=== PATIENT | female | born 1965 | race African-American/Black ===

== ENCOUNTER → 2017-07-20 | Outpatient (CLI) | payer OTHER ==
[2013-06-11 03:46] VITALS: BP 153/96
--- NOTE | 2017-07-20 10:07 | RAD ---
HISTORY: Back pain, disability claim Study: Three-view lumbar spine Comparison: No priors Technique: AP, lateral and spot lateral of the lumbosacral junction are provided. Findings: There is a grade 1 upper endplate compression deformity at the L1 level, age uncertain. There is norm al anatomic alignment without subluxation.. No other fractures are seen. Mild multilevel spondylosis is present. Disc spaces are well maintained. Pedicles, transverse processes and posterior elements ar e intact. IMPRESSION: Grade 1 upper endplate compression deformity at the L1 level, age uncertain. Reported By:
--- NOTE | 2017-07-20 10:09 | RAD ---
Examination: X-rays of the left knee. Clinical history: Left knee pain, disability claim. Technique: AP and lateral views of the left knee were obtained. Comparison: None available. Findings: No acute fracture, dislocation, or destructive bony lesion is noted. Moderate tricompartmental osteoarthritic changes are noted. Soft tissue calcifications are seen at the medial aspect of the medial femoral condyle, probably due to sequela from an old medial collateral ligament injury. A 7 mm soft tissue calcification is seen projecting over the joint space at the intercondylar notch, worrisome for a loose intra-articular body. No joint effusion is noted. Impression: 1. No acute fracture or dislocation. 2. Moderate tricompartmental osteoarthritis. 3. Soft tissue calcifications are seen at the medial aspect of the medial femoral condyle, probably d ue to sequela from an old medial collateral ligament injury. 4. A 7 mm soft tissue calcification is seen projecting over the joint space at the intercondylar notc h, worrisome for a loose intra-articular body. Reported By:
== END | disposition home or self-care (01) | DRG 951 ==
LOC: RAD 09:37
PROVIDERS: ATTEND Internal Medicine
DX: Z02.71 Encounter for disability determination (principal); M25.562 Pain in left knee; M54.5 Low back pain; M17.12 Unilateral primary osteoarthritis, left knee; M79.89 Other specified soft tissue disorders; M43.8X6 Other specified deforming dorsopathies, lumbar region
CPT/HCPCS: 72100; 73560

== ENCOUNTER 2021-04-14 17:52 | Inpatient (IN) ==
[2021-04-14] MEDS ORDERED: TYLENOL 500 MG TAB EXTRA STRENGTH PO STA (18:22)
[2021-04-14] MEDS ORDERED: NS 1000 ML 1,000 ML IV STA (18:22)
[2021-04-14] MEDS ORDERED: TORADOL 30 MG VIAL IVP STA (18:22)
--- NOTE | 2021-04-14 18:22 | DR.NAUSEAF ---
HPI Time Seen Time Seen by Provider: 04/14/21 18:03 HPI Comment HPI Comment: PATIENT WITH A HISTORY RECEIVING 2ND COVID VACCINE April, THEN DEVELOPED FEVER, CHILLS 3 DAYS LATER, FEVER, NAUSEA EMESIS TODAY. PATIENT ALSO COMPLAINS OF LEFT SIDED CHEST PAIN, NECK PAIN, AND LEFT SIDED ABDOMINAL PAIN. HAS PAIN UPON INSPIRATION AND SLIGHT COUGH. Complaints Chief Complaint Doctors Comments: FEVER, NAUSEA, EMESIS, FLANK PAIN Reviewed Nurses Notes Reviewed: Yes Associated Signs and Symptoms Abdominal Pain Quality: Sharp and Stabbing Abdominal Pain Location: LUQ Symptoms: Abdominal Pain and Fever PMH PMH Past Medical History: Depression and Hypertension Surgical History: Unknown ROS Review of Systems Constitutional: Chills, Fever and Malaise Cardiovascular: See HPI and Chest Pain Gastrointestinal/Abdominal: See HPI, Abdominal Pain, Nausea and Vomiting Neurological: Weakness Musculoskeletal: Neck Pain PE Vital Signs Vitals: Temperature 98.8 F Pulse Rate [Left] 89 Pulse Rate 112 Respiratory Rate 20 Blood Pressure [Right Arm] 115/74 Blood Pressure 127/69 O2 Sat by Pulse Oximetry 97 General General Appearance: Alert and In No Apparent Distress Head Head Exam: Normal Inspection Eyes Eye exam: Normal Appearance, PERRL and EOMI ENT ENT Exam: Normal Exam and Normal Oropharynx Neck Neck Exam: Normal Inspection and Tenderness (MODERATE TENDERNESS) Chest Chest Inspection: Normal Inspection, Symmetric Chest Wall Rise and Tenderness (MARKED TENDERNESS LEFT CHEST WALL 5TH TO 7TH RIBS) Respiratory Respiratory Exam: Normal Lung Sounds Bilat and Chest Wall Tenderness Cardiovascular Cardiovascular Exam: Regular Rate, Normal Rhythm and Tachycardia Abdominal Exam Abdominal Exam: Normal Inspection, Normal Bowel Sounds, Soft and Tenderness (MARKED TENDERNESS LEFT UPPER QUAD ANTERIOR TO LEFT CVA) Abdominal Tenderness: LUQ Extremities Extremities Exam: Normal Inspection and Full ROM Back Back Exam: Normal Inspection, Full ROM and (L) CVA Tenderness (MARKED LEFT CVA TENDERNESS) Neurologic Neurological Exam: Alert and Oriented X3 Psychiatric Psychiatric Exam: Normal Affect and Normal Mood Skin Skin Exam: Warm and Dry MDM Differential Diagnosis Differential Diagnosis: Considerations may Include:: Bowel Obstruction, Inflammatory BD, Urinary Tract Infection and Urolithiasis Differential Diagnosis Comment: LEFT PYELONEPHRITIS COURSE Treatment Treatment: IV NORMAL SALINE 1 LITER/HR AFTER 2 SETS OF BLOOD CULTURE, ROCEPHIN 2 GM IVPB, TORADOL 30MG IV, FLAGYL 2000MG ORALLY FOR TRICHOMONAS VAGINITIS Consultation Call Returned: 21:25 Consultation Comments: DISCUSSED FINDINGS WITH DR KENNY FOR ADMIT INPATIENT. ROR Labs Reviewed Result Diagrams: 04/14/21 18:34 04/14/21 18:34 Laboratory: WBC 18.4 X10^3/uL (3.6-10.0) H 04/14/21 18:34 RBC 3.83 X10^6/uL (3.5-5.4) 04/14/21 18:34 Hgb 12.2 g/dL (12.0-16.0) 04/14/21 18:34 Hct 37.4 % (36.0-47.0) 04/14/21 18:34 MCV 97.6 fL (80.0-100.0) 04/14/21 18:34 MCH 32.0 pg (27.0-34.0) 04/14/21 18:34 MCHC 32.8 g/dL (33.0-35.0) L 04/14/21 18:34 RDW 13.9 % (11.6-16.5) 04/14/21 18:34 Plt Count 205 X10^3/uL (150.0-450.0) 04/14/21 18:34 MPV 9.7 fL (7.4-11.0) 04/14/21 18:34 Neut % (Auto) 86.2 % (42.0-75.0) H 04/14/21 18:34 Lymph % (Auto) 4.1 % (21.0-51.0) L 04/14/21 18:34 [place] % (Auto) 9.4 % (0.0-13.0) 04/14/21 18:34 Eos % (Auto) 0.1 % (0.9-2.9) L 04/14/21 18:34 Baso % (Auto) 0.2 % (0.2-1.0) 04/14/21 18:34 Neut # (Auto) 15.8 x10^3/uL (2.2-4.8) H 04/14/21 18:34 Lymph # (Auto) 0.8 X10^3/uL (1.3-2.9) L 04/14/21 18:34 [place] # (Auto) 1.7 x10^3/uL (0.3-0.8) H 04/14/21 18:34 Eos # (Auto) 0.0 x10^3/uL (0.0-0.2) 04/14/21 18:34 Baso # (Auto) 0.0 X10^3/uL (0.0-0.1) 04/14/21 18:34 Absolute Nucleated RBC 0.0 /100WBC 04/14/21 18:34 D-Dimer 2.06 ug/ml (0.0-0.57) H* 04/14/21 18:34 Sodium 141 mmol/L (136-145) 04/14/21 18:34 Corrected Sodium 142 mmol/L (136-145) 04/14/21 18:34 Potassium 3.5 mmol/L (3.5-5.1) 04/14/21 18:34 Chloride 101 mmol/L (98-107) 04/14/21 18:34 Carbon Dioxide 32.3 mmol/L (21-32) H 04/14/21 18:34 BUN 12 mg/dL (7-18) 04/14/21 18:34 Creatinine 1.45 mg/dL (0.55-1.02) H 04/14/21 18:34 Est GFR (MDRD) Af Amer 48 (>60) L 04/14/21 18:34 Est GFR (MDRD) Non-Af 40 (>60) L 04/14/21 18:34 Glucose 135 mg/dL (65-99) H 04/14/21 18:34 Calcium 8.5 mg/dL (8.5-10.1) 04/14/21 18:34 Corrected Calcium 9.5 mg/dL (8.5-10.1) 04/14/21 18:34 Total Bilirubin 0.90 mg/dL (0.2-1.0) 04/14/21 18:34 AST 30 Units/L (15-37) 04/14/21 18:34 ALT 38 Units/L (12-78) 04/14/21 18:34 Alkaline Phosphatase 97 Units/L (46-116) 04/14/21 18:34 Troponin I < 0.02 ng/mL (0-1.5) 04/14/21 18:34 Total Protein 7.5 g/dL (6.4-8.2) 04/14/21 18:34 Albumin 2.7 g/dL (3.4-5.0) L 04/14/21 18:34 Globulin 4.8 g/dL (2.5-4.5) H 04/14/21 18:34 Albumin/Globulin Ratio 0.6 Ratio (1.1-2.1) L 04/14/21 18:34 Specimen Type Random urine 04/14/21 20:20 Urine Color Yellow (YELLOW) 04/14/21 20:20 Urine Appearance Cloudy (CLEAR) 04/14/21 20:20 Urine pH 7.0 (5.0 - 8.0) 04/14/21 20:20 Ur Specific [place] 1.030 (1.000-1.030) 04/14/21 20:20 Urine Protein 3+ (NEGATIVE) 04/14/21 20:20 Urine Glucose (UA) Negative (NEGATIVE) 04/14/21 20:20 Urine Ketones Negative (NEGATIVE) 04/14/21 20:20 Urine Occult Blood 4+ (NEGATIVE) 04/14/21 20:20 Urine Nitrite Negative (NEGATIVE) 04/14/21 20:20 Urine Bilirubin Negative (NEGATIVE) 04/14/21 20:20 Urine Urobilinogen Normal (NORMAL) 04/14/21 20:20 Ur Leukocyte Esterase 3+ (NEGATIVE) 04/14/21 20:20 Urine RBC 5-10 /HPF (0-3) A 04/14/21 20:20 Urine WBC Tntc /HPF (0-5) A 04/14/21 20:20 Ur Squamous Epith Cells Few /HPF (NEGATIVE) 04/14/21 20:20 Urine Bacteria 1+ /HPF (NEGATIVE) 04/14/21 20:20 Urine Mucus Few /HPF (NEGATIVE) 04/14/21 20:20 Urine Trichomonas Moderate /HPF (NEGATIVE) 04/14/21 20:20 Ur Culture Indicated? No/not indicated 04/14/21 20:20 XRAY X-ray Results: CTA CHEST WITH IV CONTRAST - NO EVIDENCE OF PULMONARY EMBOLISM. ABDOMINAL PELVIC CT CONSISTENT WITH HETEROGENEOUS ENHANCEMENT AND PERINEPHRIC STRANDING OF THE LEFT GREATER THAN RIGHT KIDNEYS MOST COMPATIBLE WITH PYELONEPHRITIS EKG Rate: 110 [place]: Normal Rhythm: NSR and ST Hypertrophy: LAE ST: Nonsp Opioid Opioid Risk Tool Total: 0 Total Score Risk Category: Low Risk Copyright: Cid LR predicting aberrant behaviors Diagnosis Discharge Problem: Acute bacterial pyelonephritis, Pleurisy Instructions Forms: Precautions for COVID19 Patient Portal Social Distancing
[2021-04-14] MEDS ORDERED: NS 1000 ML 1,000 ML ONE ×2 (18:32→22:58)
[2021-04-14] MEDS ORDERED: TYLENOL 500 MG TAB EXTRA STRENGTH PO ONE (18:32)
[2021-04-14] MEDS ORDERED: TORADOL 30 MG VIAL ONE (18:32)
[2021-04-14 18:45] LABS: BASOPHILS % (AUTO) 0.2 % (0.2-1.0); EOSINOPHILS % (AUTO) 0.1 % (0.9-2.9); HEMATOCRIT 37.4 % (36.0-47.0); HEMOGLOBIN 12.2 g/dL (12.0-16.0); LYMPHOCYTES # (AUTO) 0.8 X10^3/uL (1.3-2.9); LYMPHOCYTES % (AUTO) 4.1 % (21.0-51.0); MEAN CORPUSCULAR HGB CONC 32.8 g/dL (33.0-35.0); MEAN CORPUSCULAR VOLUME 97.6 fL (80.0-100.0); MEAN PLATELET VOLUME 9.7 fL (7.4-11.0); MONOCYTES # (AUTO) 1.7 x10^3/uL (0.3-0.8); MONOCYTES % (AUTO) 9.4 % (0.0-13.0); NEUTROPHILS # (AUTO) 15.8 x10^3/uL (2.2-4.8); NEUTROPHILS % (AUTO) 86.2 % (42.0-75.0); PLATELET COUNT 205 X10^3/uL (150.0-450.0); RED BLOOD COUNT 3.83 X10^6/uL (3.5-5.4); RED CELL DISTRIBUTION WIDTH 13.9 % (11.6-16.5); WHITE BLOOD COUNT 18.4 X10^3/uL (3.6-10.0)
[2021-04-14 18:57] LABS: ALANINE AMINOTRANSFERASE 38 Units/L (12-78); ALBUMIN 2.7 g/dL (3.4-5.0); ALKALINE PHOSPHATASE 97 Units/L (46-116); ASPARTATE AMINO TRANSFERASE 30 Units/L (15-37); BLOOD UREA NITROGEN 12 mg/dL (7-18); CALCIUM 8.5 mg/dL (8.5-10.1); CARBON DIOXIDE 32.3 mmol/L (21-32); CHLORIDE 101 mmol/L (98-107); COR CA(FOR HYPOALB) 9.5 mg/dL (8.5-10.1); COR NA(FOR HYPERGLY) 142 mmol/L (136-145); CREATININE 1.45 mg/dL (0.55-1.02); SODIUM 141 mmol/L (136-145); TOTAL PROTEIN 7.5 g/dL (6.4-8.2); TROPONIN I < 0.02 ng/mL (0-1.5); eGFR NON BLACK RACES 40 (>60)
[2021-04-14] MEDS ORDERED: NS 1000 ML 1,000 ML IV ONE (19:12)
--- NOTE | 2021-04-14 19:21 | RAD ---
HISTORYPT REPORT TO HAVING N/V AND ABD PAIN TO HIS LEFT ABD, AND A STIFF NECK, PT STATES SHE HAD COVID VACCINE ON LAST FRIDAYSTUDYCHEST, 1 VIEWCOMPARISONNoneFINDINGSThe trachea is midline. The cardiac silhouette is mildly enlarged.. The lungs are clear without focal infiltrate or effusion. The bony thorax is unremarkable.IMPRESSIONNo acute cardiopulmonary disease.Electronically signed by: STEFFI WARD (Apr 14, 2021 19:19:20)
--- NOTE | 2021-04-14 20:11 | CT ---
HISTORYPT REPORT TO HAVING N/V AND ABD PAIN TO HIS LEFT ABD, AND A STIFF NECK, PT STATES SHE HAD COVID VACCINE ON LAST ELIGIO, DDIMER 2.04STUDYCTA CHESTCOMPARISONNoneTECHNIQUECT of the chest was obtained with IV contrast. Reformatted images in the coronal sagittal planes and 3D MIP images also generated for review.FINDINGSContrast bolus timing is suboptimal for detection of PTE. Accounting for this, no central or large proximal segmental pulmonary arterial filling defects are identified. There is no pulmonary arterial dilatation or evidence of right heart strain. Heart is normal in size without pericardial effusion. The thoracic aorta and proximal great vessels are normal in contour and caliber. Central airways are patent. There is no mediastinal or hilar lymphadenopathy. The lungs are essentially clear without focal consolidation. There is no pleural effusion or pneumothorax.Limited images through the upper abdomen demonstrate no acute abnormality. No acute osseous abnormality is identified.IMPRESSIONSuboptimal CT angiogram without evidence for central/large proximal segmental PTE or additional acute cardiopulmonary abnormality.Electronically signed by: EMILIA BARBER (Apr 14, 2021 20:09:06)
--- NOTE | 2021-04-14 20:15 | CT ---
ABDOMEN/PELVIS WITH CONIndication: Nausea, vomiting, abdominal painTechnique: Helical CT images of the abdomen and pelvis were obtained with IV contrast. Reformatted images in the coronal and sagittal planes were also generated for review.Comparison: NoneFindings: Lung bases are clear. There is a remote anterior compression fracture of the L1 vertebral body with approximately 20% height loss. No acute osseous abnormality.The liver, nondistended gallbladder, spleen, pancreas and adrenals are unremarkable.There is early contrast excretion into the bilateral renal collecting systems, which limits evaluation for nephrolithiasis. Accounting for this, there is heterogeneous enhancement of the left greater than right kidneys with associated perinephric stranding, most compatible with pyelonephritis. There is no left or right obstructive uropathy.Evaluation of the GI tract is limited without oral contrast. Accounting for this, there is no bowel obstruction or inflammation. The appendix is normal. The abdominal aorta is normal in caliber. The collapsed urinary bladder is grossly unremarkable. Uterus is present. Fat containing umbilical hernia noted without evidence of bowel entrapment. There is no free air, significant free fluid or lymphadenopathy.Impression:1. Heterogeneous enhancement and perinephric stranding of the left greater than right kidneys is most compatible with pyelonephritis, which is a clinical diagnosis. Therefore, clinical as well as lab correlation with urinalysis recommended for confirmation.2. No addition acute abdominal pelvic abnormality to explain patient's symptoms.3. Fat containing umbilical hernia without evidence of bowel entrapment.Electronically signed by: EMILIA BARBER (Apr 14, 2021 20:13:32)
[2021-04-14] MEDS ORDERED: ROCEPHIN VIAL 2 GRAMS 2 G in NS 100 ML IV + SPIKE MINIBAG* 100 ML IV ONE (20:25)
[2021-04-14 20:32] LABS: BILIRUBIN,URINE NEGATIVE (NEGATIVE); BLOOD/HEMOGLOBIN,URINE 4+ (NEGATIVE); GLUCOSE, URINE NEGATIVE (NEGATIVE); KETONES,URINE NEGATIVE (NEGATIVE); LEUKOCYTE ESTERASE ,URINE 3+ (NEGATIVE); NITRITES,URINE NEGATIVE (NEGATIVE); PROTEIN,URINE 3+ (NEGATIVE); UROBILINOGEN,URINE NORMAL (NORMAL)
[2021-04-14] MEDS ORDERED: NS 100 ML IV + SPIKE MINIBAG* 100 ML IV ONE (20:38)
[2021-04-14] MEDS ORDERED: ROCEPHIN VIAL 2 GRAMS ONE (20:38)
[2021-04-14 20:39] LABS: APPEARANCE,URINE CLOUDY (CLEAR); COLOR,URINE YELLOW (YELLOW)
[2021-04-14 20:40] LABS: BACTERIA,URINE 1+ /HPF (NEGATIVE); MUCUS,URINE FEW /HPF (NEGATIVE); SQUAMOUS EPITHELIAL CELL,UR FEW /HPF (NEGATIVE); TRICHOMONAS,URINE MODERATE /HPF (NEGATIVE)
[2021-04-14] MEDS ORDERED: FLAGYL TAB 500 MG PO SCH (22:00)
[2021-04-14] MEDS ORDERED: FLAGYL TAB 500 MG PO ONE (22:20)
[2021-04-14] MEDS ORDERED: ZOFRAN INJ 4 MG VIAL IVP PRN (22:48)
[2021-04-14] MEDS ORDERED: TYLENOL 325 MG TAB PO PRN (22:48)
[2021-04-14] MEDS: NS 1000 ML 1,000 ML IV SCH (23:00)
[2021-04-14] MEDS: ROCEPHIN VIAL 2 GRAMS 2 G in NS 100 ML IV + SPIKE MINIBAG* 100 ML IV SCH (23:00)
[2021-04-14] MEDS ORDERED: NEURONTIN CAP 400 MG ONE (23:51)
[2021-04-14] MEDS ORDERED: PERCOCET TAB 5/325 MG ONE (23:52)
[2021-04-15] MEDS: NEURONTIN CAP 400 MG PO SCH ×2 (00:03→08:41)
[2021-04-15] MEDS ORDERED: PATIENT'S HOME MEDICATION (Oxycodone-Acetaminophen 10-325 mg tablet) PO SCH (06:00)
[2021-04-15] MEDS: ROXICODONE TAB 5 MG PO SCH ×3 (06:11→21:02)
[2021-04-15] MEDS: TYLENOL 325 MG TAB PO SCH ×3 (06:12→21:01)
[2021-04-15 08:29] LABS: BASOPHILS # (AUTO) 0.1 X10^3/uL (0.0-0.1); BASOPHILS % (AUTO) 0.5 % (0.2-1.0); EOSINOPHILS % (AUTO) 0.2 % (0.9-2.9); HEMOGLOBIN 11.8 g/dL (12.0-16.0); LYMPHOCYTES # (AUTO) 0.7 X10^3/uL (1.3-2.9); MEAN CORPUSCULAR HGB CONC 32.7 g/dL (33.0-35.0); MEAN CORPUSCULAR VOLUME 97.8 fL (80.0-100.0); MEAN PLATELET VOLUME 10.7 fL (7.4-11.0); MONOCYTES # (AUTO) 1.6 x10^3/uL (0.3-0.8); MONOCYTES % (AUTO) 9.7 % (0.0-13.0); NEUTROPHILS # (AUTO) 14.2 x10^3/uL (2.2-4.8); NEUTROPHILS % (AUTO) 85.6 % (42.0-75.0); PLATELET COUNT 198 X10^3/uL (150.0-450.0); RED BLOOD COUNT 3.69 X10^6/uL (3.5-5.4); RED CELL DISTRIBUTION WIDTH 13.9 % (11.6-16.5); WHITE BLOOD COUNT 16.5 X10^3/uL (3.6-10.0)
[2021-04-15 08:32] LABS: ALBUMIN 2.6 g/dL (3.4-5.0); CALCIUM 7.9 mg/dL (8.5-10.1); CARBON DIOXIDE 28.6 mmol/L (21-32); CREATININE 1.53 mg/dL (0.55-1.02); TOTAL PROTEIN 7.4 g/dL (6.4-8.2)
[2021-04-15] MEDS: ROCEPHIN VIAL 2 GRAMS 2 G in NS 100 ML IV + SPIKE MINIBAG* 100 ML IV SCH (08:40)
[2021-04-15] MEDS: TOPROL XL PO SCH (08:40)
[2021-04-15] MEDS: COZAAR PO SCH (08:40)
[2021-04-15] MEDS: DUONEB 0.5 MG/3 MG (3 mL) NEB SCH ×4 (10:32→20:43)
[2021-04-15] MEDS ORDERED: LEVAQUIN PREMIX IV 500 MG 500 MG/100 ML BAG IV SCH (11:00)
[2021-04-15] MEDS: TORADOL 30 MG VIAL IVP SCH ×2 (11:19→21:03)
[2021-04-15] MEDS: FORTAZ or TAZICEF VIAL INJ 1 G in NS 100 ML IV + SPIKE MINIBAG* 100 ML IV SCH ×3 (12:44→21:02)
[2021-04-15] MEDS: MAALOX or MYLANTA PO PRN ×2 (15:34→21:01)
--- NOTE | 2021-04-15 17:38 | DR.H&P ---
H&P - History & Physical for Day of: H&P Date: 04/14/21 - Chief Complaint Chief Complaint: FEVER, CHILLS, NAUSEA AND VOMITING, NECK PAIN, AND LEFT SIDED ABDOMINAL PAIN, COUGH, RIB PAIN - History of Present Illness History of Present Illness: IS A 55 YEAR OLD PATIENT OF OURS. SHE PRESENTED TO THE ER WITH COMPLAINTS OF FEVER, CHILLS, NAUSEA AND VOMITING, NECK PAIN, AND LEFT SIDED ABDOMINAL PAIN. PATIENT ALSO HAS A COUGH AND REPORTS SLIGHT PAIN TO THE RIB AREA UPON INSPIRATION. SYMPTOMS STARTED ABOUT A WEEK AGO AND HAVE PROGRESSIVELY GOTTEN WORSE. ABDOMINAL PAIN IS DESCRIBED SHARP, STABBING, AND IS LOCATED IN THE LLQ AND LUQ. PAIN RATED A6/10. HER PMH INCLUDES DEPRESSION AND HTN. ON ARRIVAL, VITALS WERE 101.0-112-22-98%-127/69. LABS WERE OBTAINED. ABNORMAL LAB VALUES INCLUDE THE FOLLOWING: WBC 18.4, D-DIMER 2.06, CARBON DI OXIDE 32.3, CREATININE 1.45, GLUCOSE 135, ALBUMIN 2.7, GLOBULIN 4.8. A URINALYSIS WAS OBTAINED AND REVEALED: WBC TNTC, RBC 5-10, LEUKOCYTES 3+, BACTERIA 1+, TRICHOMONAS MODERATE, OCCULT BLOOD 4+. BLOOD AND URINE CULTURES WERE SET UP. EKG REVEALED: SINUS TACHYCARDIA WITH HR 110. A CHEST XRAY WAS OBTAINED AND REVEALED: No acute cardiopulmonary disease. AN ABDOMEN/PELVIS CT WITH CONTRAST WAS OBTAINED AND REVEALED: Heterogeneous enhancement and perinephric stranding of the left greater than right kidneys is most compatible with pyelonephritis, which is a clinical diagnosis. Therefore, clinical as well as lab correlation with urinalysis recommended for confirmation. 2. No addition acute abdominal pelvic abnormality to explain patient's symptoms. 3. Fat containing umbilical hernia without evidence of bowel entrapment. A CHEST CTA WAS OBTAINED AND REVEALED: Suboptimal CT angiogram without evidence for central/large proximal segmental PTE or additional acute cardiopulmonary abnormality. IN THE ER, SHE WAS GIVEN A NORMAL SALINE BOLUS, ROCEPHIN 2G IV X 1 DOSE, GLAGYL 2000MG PO X 1 DOSE, TYLENOL 1000MG PO X 1 DOSE, TORADOL 30MG IV X 1 DOSE. SHE WAS ADMITTED TO THE HOSPITAL FOR FURTHER EVALUATION AND TREATMENT OF ACUTE PYELONEPHRITIS, ACUTE BRONCHITIS, AND PLEURISY. SHE WAS STARTED ON NORMAL SALINE AT 75 ML/HR, FORTAZ 1G IV Q8H, LEVAQUIN 500MG IV DAILY, FIORICET 2TAB PO Q6H PRN, MAALOX 30ML PO Q4H PRN, DUONEBS QID, NEURONTIN 800MG PO DAILY, TORADOL 30MG IV Q8H, COXAAR 100MG PO DAILY, TORPROL XL 25MG PO DAILY, ZOFRAN 4MG IV Q8H PRN, ROXICODONE 10MG PO TID. OTHERWISE, WE PLAN TO FOLLOW UP WITH AM LABS AND CONTINUE TO MONITOR. TIME SPENT ON CLINICAL ASSESSMENT, REVIEWING LABS AND IMAGING, DECISION MAKING, AND DOCUMENTATION WAS GREATER THAN 75 MINUTES. - Past Medical History Past Medical History: Hypertension, Depression - Past Surgical History Surgical History: Unknown - Family History Family Medical History: Diabetes Mellitus, Hypertension - Social History Does patient currently use any type of tobacco product: Yes Have you used tobacco products in the last 12 months: Yes Type of Tobacco Use: Cigarettes Does any household member use tobacco: No Alcohol Use: Occasionally Drug Use: Prescription Drugs - Medications Home Medications: No Known Drug Allergies Allergy (Verified 04/14/21 18:03) CONTINUE taking the following medications alprazolam 2 mg PO BID 04/14/21 [History] gabapentin 800 mg PO DAILY 04/14/21 [History] losartan 100 mg PO DAILY 04/14/21 [History] metoprolol succinate 25 mg PO DAILY 04/14/21 [History] oxycodone-acetaminophen 1 tab PO TID 04/14/21 [History] tramadol 50 mg PO Q6H 04/14/21 [History] atorvastatin 20 mg PO DAILY 04/15/21 [History] bupropion HCl 150 mg PO DAILY 04/15/21 [History] levothyroxine 75 mcg PO DAILY 04/15/21 [History] - Review of Systems Constitutional: Fever, Weakness Eyes: No Symptoms Reported ENT: No Symptoms Reported Respiratory: Cough, Shortness of Breath Gastrointestinal: See HPI, Nausea, Vomiting, Abdominal Pain Genitourinary: No Symptoms Reported Musculoskeletal: See HPI, Neck Pain Skin: No Symptoms Reported Neurological: Weakness - Physical Exam Vital Signs: Temperature 97.3 F Pulse Rate [Left] 86 Pulse Rate 96 Respiratory Rate 22 Blood Pressure [Right Arm] 118/68 Blood Pressure 127/69 O2 Sat by Pulse Oximetry 100 Oriented: Normal Eyes: Normal Ear: Normal Nose: Normal Throat: Normal Respiratory: Diminished Throughout Cardiovascular: Tachycardia : Normal Auscultation: Bowel Sounds: Normal Palpation: Normal Tenderness: LUQ, LLQ, Moderate Skin: Normal Psychiatric: Normal Mood Description: Calm Affect: Normal Speech Pattern: Clear - Assessment/Plan (1) Acute bacterial pyelonephritis Status: Acute Plan: ADMIT, NORMAL SALINE AT 75 ML/HR, FORTAZ 1G IV Q8H, LEVAQUIN 500MG IV DAILY, FIORICET 2TAB PO Q6H PRN, MAALOX 30ML PO Q4H PRN, DUONEBS QID, NEURONTIN 800MG PO DAILY, TORADOL 30MG IV Q8H, COXAAR 100MG PO DAILY, TORPROL XL 25MG PO DAILY, ZOFRAN 4MG IV Q8H PRN, ROXICODONE 10MG PO TID. (2) Acute bronchitis Qualifiers: Bronchitis organism: unspecified organism Qualified Code(s): J20.9 - Acute bronchitis, unspecified Status: Acute (3) Pleurisy Status: Acute - Allergies Allergies/Adverse Reactions: Allergies Allergy/AdvReac Type Severity Reaction Status Date / Time No Known Drug Allergies Allergy Verified 04/14/21 18:03
[2021-04-15 18:29] VITALS: BMI 47.4
[2021-04-15] MEDS: NS 1000 ML 1,000 ML IV SCH (19:28)
[2021-04-16] MEDS: MAALOX or MYLANTA PO PRN (02:13)
[2021-04-16] MEDS: TORADOL 30 MG VIAL IVP SCH (02:13)
[2021-04-16] MEDS: NS 1000 ML 1,000 ML IV SCH ×4 (02:14→23:29)
[2021-04-16] MEDS ORDERED: DUONEB 0.5 MG/3 MG (3 mL) NEB ONE (03:08)
[2021-04-16] MEDS: DUONEB 0.5 MG/3 MG (3 mL) NEB SCH ×5 (03:15→20:51)
[2021-04-16] MEDS ORDERED: COLACE CAP 100 MG PO PRN (03:52)
[2021-04-16] MEDS: FORTAZ or TAZICEF VIAL INJ 1 G in NS 100 ML IV + SPIKE MINIBAG* 100 ML IV SCH ×2 (05:29→12:35)
[2021-04-16] MEDS: ROXICODONE TAB 5 MG PO SCH ×3 (05:29→21:56)
[2021-04-16] MEDS: TYLENOL 325 MG TAB PO SCH ×3 (05:30→21:56)
[2021-04-16 06:49] LABS: BASOPHILS # (AUTO) 0.1 X10^3/uL (0.0-0.1); BASOPHILS % (AUTO) 0.5 % (0.2-1.0); EOSINOPHILS # (AUTO) 0.2 x10^3/uL (0.0-0.2); EOSINOPHILS % (AUTO) 1.4 % (0.9-2.9); HEMATOCRIT 35.8 % (36.0-47.0); HEMOGLOBIN 11.4 g/dL (12.0-16.0); LYMPHOCYTES # (AUTO) 0.3 X10^3/uL (1.3-2.9); LYMPHOCYTES % (AUTO) 2.2 % (21.0-51.0); MEAN CORPUSCULAR HEMOGLOBIN 31.7 pg (27.0-34.0); MEAN CORPUSCULAR HGB CONC 31.9 g/dL (33.0-35.0); MEAN CORPUSCULAR VOLUME 99.2 fL (80.0-100.0); MEAN PLATELET VOLUME 11.6 fL (7.4-11.0); MONOCYTES # (AUTO) 0.8 x10^3/uL (0.3-0.8); MONOCYTES % (AUTO) 5.6 % (0.0-13.0); NEUTROPHILS # (AUTO) 13.1 x10^3/uL (2.2-4.8); NEUTROPHILS % (AUTO) 90.3 % (42.0-75.0); PLATELET COUNT 202 X10^3/uL (150.0-450.0); RED CELL DISTRIBUTION WIDTH 14.5 % (11.6-16.5); WHITE BLOOD COUNT 14.5 X10^3/uL (3.6-10.0)
[2021-04-16 07:12] LABS: ALBUMIN 2.3 g/dL (3.4-5.0); CALCIUM 7.7 mg/dL (8.5-10.1); CARBON DIOXIDE 23.5 mmol/L (21-32); COR CA(FOR HYPOALB) 9.1 mg/dL (8.5-10.1); CREATININE 3.09 mg/dL (0.55-1.02); TOTAL PROTEIN 7.4 g/dL (6.4-8.2)
[2021-04-16 07:25] LABS: BAND NEUTROPHILS % 13 % (0-10); PLATELET MORPHOLOGY COMMENT NORMAL (NORMAL)
[2021-04-16] MEDS ORDERED: TORADOL 30 MG VIAL IVP SCH (08:00)
[2021-04-16] MEDS: LEVAQUIN PREMIX IV 250 MG 250 MG/50 ML BAG IV SCH (09:53)
[2021-04-16] MEDS: TOPROL XL PO SCH (09:55)
[2021-04-16] MEDS: COZAAR PO SCH (09:55)
[2021-04-16] MEDS: NEURONTIN TAB 600 MG PO SCH (09:55)
[2021-04-16] MEDS ORDERED: NS 1000 ML 1,000 ML IV ONE ×2 (10:20→11:20)
[2021-04-17] MEDS: FIORICET TAB PO PRN ×2 (03:00→11:50)
[2021-04-17] MEDS: TYLENOL 325 MG TAB PO SCH ×3 (05:26→22:56)
[2021-04-17] MEDS: ROXICODONE TAB 5 MG PO SCH ×3 (05:26→22:56)
[2021-04-17 06:27] LABS: BASOPHILS % (AUTO) 0.1 % (0.2-1.0); EOSINOPHILS # (AUTO) 0.6 x10^3/uL (0.0-0.2); EOSINOPHILS % (AUTO) 4.5 % (0.9-2.9); HEMATOCRIT 33.9 % (36.0-47.0); HEMOGLOBIN 10.9 g/dL (12.0-16.0); LYMPHOCYTES # (AUTO) 1.1 X10^3/uL (1.3-2.9); LYMPHOCYTES % (AUTO) 8.4 % (21.0-51.0); MEAN CORPUSCULAR HEMOGLOBIN 31.7 pg (27.0-34.0); MEAN CORPUSCULAR HGB CONC 32.1 g/dL (33.0-35.0); MEAN CORPUSCULAR VOLUME 98.7 fL (80.0-100.0); MEAN PLATELET VOLUME 10.3 fL (7.4-11.0); MONOCYTES # (AUTO) 1.1 x10^3/uL (0.3-0.8); MONOCYTES % (AUTO) 9.1 % (0.0-13.0); NEUTROPHILS # (AUTO) 9.8 x10^3/uL (2.2-4.8); NEUTROPHILS % (AUTO) 77.9 % (42.0-75.0); PLATELET COUNT 267 X10^3/uL (150.0-450.0); RED BLOOD COUNT 3.43 X10^6/uL (3.5-5.4); RED CELL DISTRIBUTION WIDTH 14.3 % (11.6-16.5); WHITE BLOOD COUNT 12.7 X10^3/uL (3.6-10.0)
[2021-04-17 06:37] LABS: ALBUMIN 2.2 g/dL (3.4-5.0); CALCIUM 7.7 mg/dL (8.5-10.1); CARBON DIOXIDE 24.9 mmol/L (21-32); COR CA(FOR HYPOALB) 9.1 mg/dL (8.5-10.1); CREATININE 1.47 mg/dL (0.55-1.02); TOTAL PROTEIN 7.1 g/dL (6.4-8.2)
[2021-04-17] MEDS: FORTAZ or TAZICEF VIAL INJ 1 G in NS 100 ML IV + SPIKE MINIBAG* 100 ML IV SCH (08:12)
[2021-04-17] MEDS: COZAAR PO SCH (08:13)
[2021-04-17] MEDS: NEURONTIN TAB 600 MG PO SCH (08:13)
[2021-04-17] MEDS: LEVAQUIN PREMIX IV 250 MG 250 MG/50 ML BAG IV SCH (08:15)
[2021-04-17] MEDS: DUONEB 0.5 MG/3 MG (3 mL) NEB SCH ×4 (08:42→20:15)
[2021-04-17] MEDS: WELLBUTRIN XL 150 MG (DAILY) PO SCH (09:00)
[2021-04-17] MEDS: TOPROL XL PO SCH (09:00)
--- NOTE | 2021-04-17 10:54 | PCM.PROG ---
Progress Note - Progress Note for Day of Date of Exam: 04/16/21 - Subjective Subjective: IS BEING TREATED FOR ACUTE PYELONEPHRITIS, UTI, ACUTE BRONCHITIS, AND PLEURISY. TODAY, SHE IS ALERT AND ORIENTED, LYING IN BED ON MORNING ROUNDS. SHE CONTINUES WITH COMPLAINTS OF GENERALIZED ACHING, ABDOMINAL TENDERNESS, BURNING ON URINATION, AND COUGH. ON EXAMINATION, HEART IS REGULAR IN RATE AND RHYTHM. BILATERAL LUNGS ARE NOTED TO HAVE SCATTERED WHEEZING THROUGHOUT. ABDOMEN IS ROUND, SOFT, AND NOTED TO HAVE DIFFUSE TENDERNESS TO PALPATION. NORMAL BOWEL SOUNDS ARE NOTED IN ALL QUADRANTS. HER VITALS THIS MORNING ARE: 97.8-81-26-99%-98/57. LABS WERE OBTAINED. ABNORMAL LAB VALUES INCLUDE THE FOLLOWING: WBC 14.5, HGB 11.4, HCT 35.8, POTASSIUM 3.4, BUN 25, CREATININE 3.09, GLUCOSE 216, CALCIUM 7.7, AST 88, ALK PHOS 185, ALBUMIN 2.3, GLOBULIN 5.1. BLOOD AND URINE CULTURES ARE PENDING. SHE IS CURRENTLY RECEIVING NORMAL SALINE AT 75 ML/HR, FORTAZ 1G IV Q8H, LEVAQUIN 500MG IV DAILY, FIORICET 2TAB PO Q6H PRN, MAALOX 30ML PO Q4H PRN, DUONEBS QID, NEURONTIN 800MG PO DAILY, TORADOL 30MG IV Q8H, COXAAR 100MG PO DAILY, TORPROL XL 25MG PO DAILY, ZOFRAN 4MG IV Q8H PRN, ROXICODONE 10MG PO TID. TODAY, WE WILL HOLD THE TORADOL AND ADMINISTER (TWO) ONE LITER NORMAL SALINE BOLUSES. OTHERWISE, WE PLAN TO FOLLOW UP WITH AM LABS AND CONTINUE TO MONITOR. TIME SPENT ON CLINICAL ASSESSMENT, REVIEWING LABS AND IMAGING, DECISION MAKING, AND DOCUMENTATION GREATER THAN 45 MINUTES. - Past Medical Family Social History Past Med/Fam/Surg Hx: No changes since H&P Allergies: Allergies No Known Drug Allergies Allergy (Verified 04/14/21 18:03) - Review of Systems ROS: No change since H&P - Vital Signs and I&O's Vital Signs: Temperature 98.0 F Pulse Rate [Left] 96 Pulse Rate 88 Respiratory Rate 24 Blood Pressure [Right Arm] 134/75 Blood Pressure 127/69 O2 Sat by Pulse Oximetry 98 Intake and Output: Intake & Output 06/07/21 04/15/21 04/16/21 04/17/21 11:59 11:59 11:59 11:59 Intake Total 2980 / 2980 4550 / 4550 5861 / 5861 Output Total 200 / 200 1170 / 1170 Balance 2980 / 2980 4350 / 4350 4691 / 4691 - Physical Exam Oriented: Normal Eyes: Normal Ear: Normal Nose: Normal Throat: Normal Respiratory: Generalized, Wheezes Cardiovascular: Normal : Normal Auscultation: Bowel Sounds: Normal Palpation: Normal Tenderness: LUQ, LLQ, Moderate Skin: Normal Psychiatric: Normal Mood Description: Calm Affect: Normal Speech Pattern: Clear, Appropriate - Laboratory and Diagnostics Result Diagrams: 04/17/21 06:00 04/17/21 06:00 Labs: 04/15/21 15:50 Urine,Catheterized Urine Culture - Final 04/14/21 19:30 Blood Blood Culture - Final Escherichia Coli 04/14/21 19:38 Blood Blood Culture - Final Escherichia Coli Laboratory WBC 12.7 X10^3/uL (3.6-10.0) H 04/17/21 06:00 RBC 3.43 X10^6/uL (3.5-5.4) L 04/17/21 06:00 Hgb 10.9 g/dL (12.0-16.0) L 04/17/21 06:00 Hct 33.9 % (36.0-47.0) L 04/17/21 06:00 MCV 98.7 fL (80.0-100.0) 04/17/21 06:00 MCH 31.7 pg (27.0-34.0) 04/17/21 06:00 MCHC 32.1 g/dL (33.0-35.0) L 04/17/21 06:00 RDW 14.3 % (11.6-16.5) 04/17/21 06:00 Plt Count 267 X10^3/uL (150.0-450.0) 04/17/21 06:00 Plt Count Comment Adequate (ADEQUATE) 04/16/21 05:42 MPV 10.3 fL (7.4-11.0) 04/17/21 06:00 Neut % (Auto) 77.9 % (42.0-75.0) H 04/17/21 06:00 Lymph % (Auto) 8.4 % (21.0-51.0) L 04/17/21 06:00 [place] % (Auto) 9.1 % (0.0-13.0) 04/17/21 06:00 Eos % (Auto) 4.5 % (0.9-2.9) H 04/17/21 06:00 Baso % (Auto) 0.1 % (0.2-1.0) L 04/17/21 06:00 Neut # (Auto) 9.8 x10^3/uL (2.2-4.8) H 04/17/21 06:00 Lymph # (Auto) 1.1 X10^3/uL (1.3-2.9) L 04/17/21 06:00 [place] # (Auto) 1.1 x10^3/uL (0.3-0.8) H 04/17/21 06:00 Eos # (Auto) 0.6 x10^3/uL (0.0-0.2) H 04/17/21 06:00 Baso # (Auto) 0.0 X10^3/uL (0.0-0.1) 04/17/21 06:00 Absolute Nucleated RBC 0.1 /100WBC 04/17/21 06:00 Total Counted 100 04/16/21 05:42 Neutrophils % (Manual) 77 % (39-76) H 04/16/21 05:42 Band Neutrophils % 13 % (0-10) H 04/16/21 05:42 Lymphocytes % (Manual) 3 % (13-43) L 04/16/21 05:42 Monocytes % (Manual) 7 % (4-9) 04/16/21 05:42 Plt Morphology Comment Normal (NORMAL) 04/16/21 05:42 RBC Morphology Normal (NORMAL) 04/16/21 05:42 D-Dimer 2.06 ug/ml (0.0-0.57) H* 04/14/21 18:34 Sodium 141 mmol/L (136-145) 04/17/21 06:00 Corrected Sodium 141 mmol/L (136-145) 04/17/21 06:00 Potassium 3.4 mmol/L (3.5-5.1) L 04/17/21 06:00 Chloride 105 mmol/L (98-107) 04/17/21 06:00 Carbon Dioxide 24.9 mmol/L (21-32) 04/17/21 06:00 BUN 19 mg/dL (7-18) H 04/17/21 06:00 Creatinine 1.47 mg/dL (0.55-1.02) H 04/17/21 06:00 Est GFR (MDRD) Af Amer 48 (>60) L 04/17/21 06:00 Est GFR (MDRD) Non-Af 39 (>60) L 04/17/21 06:00 Glucose 120 mg/dL (65-99) H 04/17/21 06:00 Calcium 7.7 mg/dL (8.5-10.1) L 04/17/21 06:00 Corrected Calcium 9.1 mg/dL (8.5-10.1) 04/17/21 06:00 Magnesium 2.0 mg/dL (1.7-2.9) 04/15/21 07:57 Total Bilirubin 0.40 mg/dL (0.2-1.0) 04/17/21 06:00 AST 151 Units/L (15-37) H 04/17/21 06:00 ALT 122 Units/L (12-78) H 04/17/21 06:00 Alkaline Phosphatase 234 Units/L (46-116) H 04/17/21 06:00 Troponin I < 0.02 ng/mL (0-1.5) 04/14/21 18:34 Total Protein 7.1 g/dL (6.4-8.2) 04/17/21 06:00 Albumin 2.2 g/dL (3.4-5.0) L 04/17/21 06:00 Globulin 4.9 g/dL (2.5-4.5) H 04/17/21 06:00 Albumin/Globulin Ratio 0.4 Ratio (1.1-2.1) L 04/17/21 06:00 Specimen Type Random urine 04/14/21 20:20 Urine Color Yellow (YELLOW) 04/14/21 20:20 Urine Appearance Cloudy (CLEAR) 04/14/21 20:20 Urine pH 7.0 (5.0 - 8.0) 04/14/21 20:20 Ur Specific [place] 1.030 (1.000-1.030) 04/14/21 20:20 Urine Protein 3+ (NEGATIVE) 04/14/21 20:20 Urine Glucose (UA) Negative (NEGATIVE) 04/14/21 20:20 Urine Ketones Negative (NEGATIVE) 04/14/21 20:20 Urine Occult Blood 4+ (NEGATIVE) 04/14/21 20:20 Urine Nitrite Negative (NEGATIVE) 04/14/21 20:20 Urine Bilirubin Negative (NEGATIVE) 04/14/21 20:20 Urine Urobilinogen Normal (NORMAL) 04/14/21 20:20 Ur Leukocyte Esterase 3+ (NEGATIVE) 04/14/21 20:20 Urine RBC 5-10 /HPF (0-3) A 04/14/21 20:20 Urine WBC Tntc /HPF (0-5) A 04/14/21 20:20 Ur Squamous Epith Cells Few /HPF (NEGATIVE) 04/14/21 20:20 Urine Bacteria 1+ /HPF (NEGATIVE) 04/14/21 20:20 Urine Mucus Few /HPF (NEGATIVE) 04/14/21 20:20 Urine Trichomonas Moderate /HPF (NEGATIVE) 04/14/21 20:20 Ur Culture Indicated? No/not indicated 04/14/21 20:20 - Plan (1) Acute bacterial pyelonephritis Status: Acute Plan: NS BOLUS X 2, NORMAL SALINE AT 75 ML/HR, FORTAZ 1G IV Q8H, LEVAQUIN 500MG IV DAILY, FIORICET 2TAB PO Q6H PRN, MAALOX 30ML PO Q4H PRN, DUONEBS QID, NEURONTIN 800MG PO DAILY, COZAAR 100MG PO DAILY, TORPROL XL 25MG PO DAILY, ZOFRAN 4MG IV Q8H PRN, ROXICODONE 10MG PO TID. (2) Acute bronchitis Status: Acute Qualifiers: Bronchitis organism: unspecified organism Qualified Code(s): J20.9 - Acute bronchitis, unspecified (3) Pleurisy Status: Acute
--- NOTE | 2021-04-17 11:36 | RAD ---
HISTORYSOBSTUDYCHEST x-ray, 1 VIEWCOMPARISONX-ray 04/14/2021FINDINGSCHF is likely. It appears improved from prior study, though. No pneumothorax or pleural effusion is seen. Possible very minimal pulmonary edema. Persistent minimal linear atelectasis in the lingula. Likely mild linear atelectasis has developed at the right lung base.IMPRESSIONCHF is likely and there may be very minimal pulmonary edema. Appearance appears slightly improved from prior study.Electronically signed by: Renny Vaughn (Apr 17, 2021 11:34:48)
[2021-04-17] MEDS: MAALOX or MYLANTA PO PRN (11:51)
[2021-04-17] MEDS: PYRIDIUM PO SCH ×2 (11:52→17:18)
[2021-04-17] MEDS: NS 1000 ML 1,000 ML IV SCH ×2 (12:59→22:56)
[2021-04-18] MEDS: ROXICODONE TAB 5 MG PO SCH ×3 (05:34→21:02)
[2021-04-18] MEDS: TYLENOL 325 MG TAB PO SCH ×3 (05:34→21:04)
[2021-04-18] MEDS: NS 1000 ML 1,000 ML IV SCH ×3 (06:26→20:38)
[2021-04-18] MEDS: PYRIDIUM PO SCH ×3 (06:26→17:32)
[2021-04-18 06:30] LABS: BASOPHILS # (AUTO) 0.1 X10^3/uL (0.0-0.1); BASOPHILS % (AUTO) 0.6 % (0.2-1.0); EOSINOPHILS # (AUTO) 0.4 x10^3/uL (0.0-0.2); EOSINOPHILS % (AUTO) 3.2 % (0.9-2.9); HEMATOCRIT 29.8 % (36.0-47.0); HEMOGLOBIN 9.8 g/dL (12.0-16.0); LYMPHOCYTES # (AUTO) 1.4 X10^3/uL (1.3-2.9); LYMPHOCYTES % (AUTO) 11.5 % (21.0-51.0); MEAN CORPUSCULAR HEMOGLOBIN 32.1 pg (27.0-34.0); MEAN CORPUSCULAR HGB CONC 32.8 g/dL (33.0-35.0); MEAN CORPUSCULAR VOLUME 97.7 fL (80.0-100.0); MEAN PLATELET VOLUME 9.4 fL (7.4-11.0); MONOCYTES # (AUTO) 1.1 x10^3/uL (0.3-0.8); NEUTROPHILS # (AUTO) 9.5 x10^3/uL (2.2-4.8); NEUTROPHILS % (AUTO) 75.7 % (42.0-75.0); PLATELET COUNT 289 X10^3/uL (150.0-450.0); RED BLOOD COUNT 3.05 X10^6/uL (3.5-5.4); RED CELL DISTRIBUTION WIDTH 14.6 % (11.6-16.5); WHITE BLOOD COUNT 12.6 X10^3/uL (3.6-10.0)
[2021-04-18 06:46] LABS: ALANINE AMINOTRANSFERASE 139 Units/L (12-78); ALBUMIN 2.2 g/dL (3.4-5.0); ALKALINE PHOSPHATASE 253 Units/L (46-116); ASPARTATE AMINO TRANSFERASE 116 Units/L (15-37); BLOOD UREA NITROGEN 6 mg/dL (7-18); CARBON DIOXIDE 24.9 mmol/L (21-32); CHLORIDE 110 mmol/L (98-107); COR CA(FOR HYPOALB) 9.4 mg/dL (8.5-10.1); COR NA(FOR HYPERGLY) 146 mmol/L (136-145); CREATININE 0.94 mg/dL (0.55-1.02); SODIUM 145 mmol/L (136-145); TOTAL PROTEIN 6.7 g/dL (6.4-8.2); eGFR NON BLACK RACES > 60 (>60)
[2021-04-18] MEDS: DUONEB 0.5 MG/3 MG (3 mL) NEB SCH ×4 (08:29→21:05)
[2021-04-18] MEDS: COZAAR PO SCH (08:44)
[2021-04-18] MEDS: WELLBUTRIN XL 150 MG (DAILY) PO SCH (08:44)
[2021-04-18] MEDS: TOPROL XL PO SCH (08:44)
[2021-04-18] MEDS: FORTAZ or TAZICEF VIAL INJ 1 G in NS 100 ML IV + SPIKE MINIBAG* 100 ML IV SCH (08:44)
[2021-04-18] MEDS: NEURONTIN TAB 600 MG PO SCH (08:44)
--- NOTE | 2021-04-18 08:47 | PCM.PROG ---
Progress Note - Progress Note for Day of Date of Exam: 04/17/21 - Subjective Subjective: IS BEING TREATED FOR ACUTE PYELONEPHRITIS, UTI, ACUTE BRONCHITIS, AND PLEURISY. TODAY, SHE IS ALERT AND ORIENTED, LYING IN BED ON MORNING ROUNDS. SHE CONTINUES WITH COMPLAINTS OF GENERALIZED ACHING, ABDOMINAL TENDERNESS, BURNING ON URINATION, AND COUGH. ON EXAMINATION, HEART IS REGULAR IN RATE AND RHYTHM. BILATERAL LUNGS ARE NOTED TO HAVE SCATTERED WHEEZING THROUGHOUT. ABDOMEN IS ROUND, SOFT, AND NOTED TO HAVE DIFFUSE TENDERNESS TO PALPATION. NORMAL BOWEL SOUNDS ARE NOTED IN ALL QUADRANTS. HER VITALS THIS MORNING ARE: 98.0-96-94%-99-134/75. LABS WERE OBTAINED. ABNORMAL LAB VALUES INCLUDE THE FOLLOWING: wbc 12.7, rbc 3.43, hgb 10.9, hct 33.9, potassium 3.4, bun 19, creatinine 1.47, glucose 120, calcium 7.7, ast 151, alt 122, alk phos 234, albumin 2.2, globulin 4.9. BLOOD AND URINE CULTURES ARE PENDING. SHE IS CURRENTLY RECEIVING NORMAL SALINE AT 75 ML/HR, FORTAZ 1G IV Q8H, LEVAQUIN 500MG IV DAILY, FIORICET 2TAB PO Q6H PRN, MAALOX 30ML PO Q4H PRN, DUONEBS QID, NEURONTIN 800MG PO DAILY, TORADOL 30MG IV Q8H, COXAAR 100MG PO DAILY, TORPROL XL 25MG PO DAILY, ZOFRAN 4MG IV Q8H PRN, ROXICODONE 10MG PO TID. TODAY, WE WILL ADD PYRIDIUM 200MG PO TID AND OBTAIN A CHEST XRAY. OTHERWISE, WE PLAN TO FOLLOW UP WITH AM LABS AND CONTINUE TO MONITOR. TIME SPENT ON CLINICAL ASSESSMENT, REVIEWING LABS AND IMAGING, DECISION MAKING, AND DOCUMENTATION GREATER THAN 45 MINUTES. - Past Medical Family Social History Past Med/Fam/Surg Hx: No changes since H&P Allergies: Allergies No Known Drug Allergies Allergy (Verified 04/14/21 18:03) - Review of Systems ROS: No change since H&P - Vital Signs and I&O's Vital Signs: Temperature 98.6 F Pulse Rate [Left] 81 Pulse Rate 86 Respiratory Rate 24 Blood Pressure [Right Arm] 136/66 Blood Pressure 127/69 O2 Sat by Pulse Oximetry 94 Intake and Output: Intake & Output 04/15/21 04/16/21 04/17/21 04/18/21 11:59 11:59 11:59 11:59 Intake Total 2980 / 2980 4550 / 4550 5861 / 5861 5056 / 5056 Output Total 200 / 200 1170 / 1170 4925 / 4925 Balance 2980 / 2980 4350 / 4350 4691 / 4691 131 / 131 - Physical Exam Oriented: Normal Eyes: Normal Ear: Normal Nose: Normal Throat: Normal Respiratory: Generalized, Wheezes Cardiovascular: Normal : Normal Auscultation: Bowel Sounds: Normal Palpation: Normal Tenderness: LUQ, LLQ, Moderate Skin: Normal Psychiatric: Normal Mood Description: Calm Affect: Normal Speech Pattern: Clear, Appropriate - Laboratory and Diagnostics Result Diagrams: 04/18/21 05:53 04/18/21 05:53 Labs: 04/15/21 15:50 Urine,Catheterized Urine Culture - Final 04/14/21 19:30 Blood Blood Culture - Final Escherichia Coli 04/14/21 19:38 Blood Blood Culture - Final Escherichia Coli Laboratory WBC 12.6 X10^3/uL (3.6-10.0) H 04/18/21 05:53 RBC 3.05 X10^6/uL (3.5-5.4) L 04/18/21 05:53 Hgb 9.8 g/dL (12.0-16.0) L 04/18/21 05:53 Hct 29.8 % (36.0-47.0) L 04/18/21 05:53 MCV 97.7 fL (80.0-100.0) 04/18/21 05:53 MCH 32.1 pg (27.0-34.0) 04/18/21 05:53 MCHC 32.8 g/dL (33.0-35.0) L 04/18/21 05:53 RDW 14.6 % (11.6-16.5) 04/18/21 05:53 Plt Count 289 X10^3/uL (150.0-450.0) 04/18/21 05:53 Plt Count Comment Adequate (ADEQUATE) 04/16/21 05:42 MPV 9.4 fL (7.4-11.0) 04/18/21 05:53 Neut % (Auto) 75.7 % (42.0-75.0) H 04/18/21 05:53 Lymph % (Auto) 11.5 % (21.0-51.0) L 04/18/21 05:53 [place] % (Auto) 9.0 % (0.0-13.0) 04/18/21 05:53 Eos % (Auto) 3.2 % (0.9-2.9) H 04/18/21 05:53 Baso % (Auto) 0.6 % (0.2-1.0) 04/18/21 05:53 Neut # (Auto) 9.5 x10^3/uL (2.2-4.8) H 04/18/21 05:53 Lymph # (Auto) 1.4 X10^3/uL (1.3-2.9) 04/18/21 05:53 [place] # (Auto) 1.1 x10^3/uL (0.3-0.8) H 04/18/21 05:53 Eos # (Auto) 0.4 x10^3/uL (0.0-0.2) H 04/18/21 05:53 Baso # (Auto) 0.1 X10^3/uL (0.0-0.1) 04/18/21 05:53 Absolute Nucleated RBC 0.0 /100WBC 04/18/21 05:53 Total Counted 100 04/16/21 05:42 Neutrophils % (Manual) 77 % (39-76) H 04/16/21 05:42 Band Neutrophils % 13 % (0-10) H 04/16/21 05:42 Lymphocytes % (Manual) 3 % (13-43) L 04/16/21 05:42 Monocytes % (Manual) 7 % (4-9) 04/16/21 05:42 Plt Morphology Comment Normal (NORMAL) 04/16/21 05:42 RBC Morphology Normal (NORMAL) 04/16/21 05:42 D-Dimer 2.06 ug/ml (0.0-0.57) H* 04/14/21 18:34 Sodium 145 mmol/L (136-145) 04/18/21 05:53 Corrected Sodium 146 mmol/L (136-145) H 04/18/21 05:53 Potassium 3.6 mmol/L (3.5-5.1) 04/18/21 05:53 Chloride 110 mmol/L (98-107) H 04/18/21 05:53 Carbon Dioxide 24.9 mmol/L (21-32) 04/18/21 05:53 BUN 6 mg/dL (7-18) L 04/18/21 05:53 Creatinine 0.94 mg/dL (0.55-1.02) 04/18/21 05:53 Est GFR (MDRD) Af Amer > 60 (>60) 04/18/21 05:53 Est GFR (MDRD) Non-Af > 60 (>60) 04/18/21 05:53 Glucose 125 mg/dL (65-99) H 04/18/21 05:53 Calcium 8.0 mg/dL (8.5-10.1) L 04/18/21 05:53 Corrected Calcium 9.4 mg/dL (8.5-10.1) 04/18/21 05:53 Magnesium 2.7 mg/dL (1.7-2.9) 04/18/21 05:53 Total Bilirubin 0.40 mg/dL (0.2-1.0) 04/18/21 05:53 AST 116 Units/L (15-37) H 04/18/21 05:53 ALT 139 Units/L (12-78) H 04/18/21 05:53 Alkaline Phosphatase 253 Units/L (46-116) H 04/18/21 05:53 Troponin I < 0.02 ng/mL (0-1.5) 04/14/21 18:34 Total Protein 6.7 g/dL (6.4-8.2) 04/18/21 05:53 Albumin 2.2 g/dL (3.4-5.0) L 04/18/21 05:53 Globulin 4.5 g/dL (2.5-4.5) 04/18/21 05:53 Albumin/Globulin Ratio 0.5 Ratio (1.1-2.1) L 04/18/21 05:53 Specimen Type Random urine 04/14/21 20:20 Urine Color Yellow (YELLOW) 04/14/21 20:20 Urine Appearance Cloudy (CLEAR) 04/14/21 20:20 Urine pH 7.0 (5.0 - 8.0) 04/14/21 20:20 Ur Specific [place] 1.030 (1.000-1.030) 04/14/21 20:20 Urine Protein 3+ (NEGATIVE) 04/14/21 20:20 Urine Glucose (UA) Negative (NEGATIVE) 04/14/21 20:20 Urine Ketones Negative (NEGATIVE) 04/14/21 20:20 Urine Occult Blood 4+ (NEGATIVE) 04/14/21 20:20 Urine Nitrite Negative (NEGATIVE) 04/14/21 20:20 Urine Bilirubin Negative (NEGATIVE) 04/14/21 20:20 Urine Urobilinogen Normal (NORMAL) 04/14/21 20:20 Ur Leukocyte Esterase 3+ (NEGATIVE) 04/14/21 20:20 Urine RBC 5-10 /HPF (0-3) A 04/14/21 20:20 Urine WBC Tntc /HPF (0-5) A 04/14/21 20:20 Ur Squamous Epith Cells Few /HPF (NEGATIVE) 04/14/21 20:20 Urine Bacteria 1+ /HPF (NEGATIVE) 04/14/21 20:20 Urine Mucus Few /HPF (NEGATIVE) 04/14/21 20:20 Urine Trichomonas Moderate /HPF (NEGATIVE) 04/14/21 20:20 Ur Culture Indicated? No/not indicated 04/14/21 20:20 - Plan (1) Acute bacterial pyelonephritis Status: Acute Plan: NORMAL SALINE AT 75 ML/HR, FORTAZ 1G IV Q8H, LEVAQUIN 500MG IV DAILY, PYRIDIUM 200MG PO TID, FIORICET 2TAB PO Q6H PRN, MAALOX 30ML PO Q4H PRN, DUONEBS QID, NEURONTIN 800MG PO DAILY, COZAAR 100MG PO DAILY, TORPROL XL 25MG PO DAILY, ZOFRAN 4MG IV Q8H PRN, ROXICODONE 10MG PO TID. (2) Acute bronchitis Status: Acute Qualifiers: Bronchitis organism: unspecified organism Qualified Code(s): J20.9 - Acute bronchitis, unspecified (3) Pleurisy Status: Acute
[2021-04-18] MEDS ORDERED: LASIX IVP ONE (10:18)
[2021-04-18] MEDS: LEVSIN/MAALOX/LIDOC VISC PO SCH ×4 (10:44→20:34)
[2021-04-18] MEDS: ALBUMIN HUMAN 25%- 100 ML 100 ML IV SCH (10:45)
[2021-04-18] MEDS: LEVAQUIN PREMIX IV 250 MG 250 MG/50 ML BAG IV SCH (10:47)
[2021-04-19] MEDS: NS 1000 ML 1,000 ML IV SCH ×2 (06:00→17:52)
[2021-04-19] MEDS: ROXICODONE TAB 5 MG PO SCH ×3 (06:00→21:07)
[2021-04-19] MEDS: PYRIDIUM PO SCH ×3 (06:01→17:52)
[2021-04-19] MEDS: TYLENOL 325 MG TAB PO SCH ×3 (06:01→21:07)
[2021-04-19 06:38] LABS: BASOPHILS # (AUTO) 0.1 X10^3/uL (0.0-0.1); BASOPHILS % (AUTO) 0.4 % (0.2-1.0); EOSINOPHILS # (AUTO) 0.4 x10^3/uL (0.0-0.2); EOSINOPHILS % (AUTO) 2.8 % (0.9-2.9); HEMATOCRIT 30.8 % (36.0-47.0); LYMPHOCYTES # (AUTO) 1.6 X10^3/uL (1.3-2.9); LYMPHOCYTES % (AUTO) 11.1 % (21.0-51.0); MEAN CORPUSCULAR HEMOGLOBIN 31.6 pg (27.0-34.0); MEAN CORPUSCULAR HGB CONC 32.6 g/dL (33.0-35.0); MEAN CORPUSCULAR VOLUME 96.9 fL (80.0-100.0); MEAN PLATELET VOLUME 9.1 fL (7.4-11.0); MONOCYTES # (AUTO) 1.5 x10^3/uL (0.3-0.8); MONOCYTES % (AUTO) 10.8 % (0.0-13.0); NEUTROPHILS # (AUTO) 10.6 x10^3/uL (2.2-4.8); NEUTROPHILS % (AUTO) 74.9 % (42.0-75.0); PLATELET COUNT 345 X10^3/uL (150.0-450.0); RED BLOOD COUNT 3.17 X10^6/uL (3.5-5.4); RED CELL DISTRIBUTION WIDTH 14.2 % (11.6-16.5); WHITE BLOOD COUNT 14.1 X10^3/uL (3.6-10.0)
[2021-04-19 06:51] LABS: ALANINE AMINOTRANSFERASE 145 Units/L (12-78); ALBUMIN 2.5 g/dL (3.4-5.0); ALKALINE PHOSPHATASE 264 Units/L (46-116); ASPARTATE AMINO TRANSFERASE 101 Units/L (15-37); BLOOD UREA NITROGEN 5 mg/dL (7-18); CALCIUM 8.3 mg/dL (8.5-10.1); CARBON DIOXIDE 28.6 mmol/L (21-32); CHLORIDE 112 mmol/L (98-107); COR CA(FOR HYPOALB) 9.5 mg/dL (8.5-10.1); CREATININE 0.83 mg/dL (0.55-1.02); SODIUM 149 mmol/L (136-145); TOTAL PROTEIN 6.9 g/dL (6.4-8.2); eGFR NON BLACK RACES > 60 (>60)
[2021-04-19] MEDS: WELLBUTRIN XL 150 MG (DAILY) PO SCH (08:28)
[2021-04-19] MEDS: NEURONTIN TAB 600 MG PO SCH (08:28)
[2021-04-19] MEDS: TOPROL XL PO SCH (08:28)
[2021-04-19] MEDS: COZAAR PO SCH (08:28)
[2021-04-19] MEDS: LEVSIN/MAALOX/LIDOC VISC PO SCH ×4 (08:29→20:26)
[2021-04-19] MEDS: ALBUMIN HUMAN 25%- 100 ML 100 ML IV SCH (08:30)
[2021-04-19] MEDS: DUONEB 0.5 MG/3 MG (3 mL) NEB SCH ×4 (09:07→20:05)
[2021-04-19] MEDS ORDERED: LEXAPRO ONE (09:09)
[2021-04-19] MEDS: LEXAPRO PO SCH (09:11)
[2021-04-19] MEDS: XANAX PO SCH ×3 (09:11→21:07)
[2021-04-19] MEDS: LEVAQUIN PREMIX IV 250 MG 250 MG/50 ML BAG IV SCH (09:14)
[2021-04-19] MEDS ORDERED: POTASSIUM CHLORIDE LIQ 20 MEQ UDC PO PRN (09:15)
[2021-04-19] MEDS ORDERED: K-RIDER 10 MEQ/NS 100 ML 10 MEQ/100 ML BAG IV PRN (09:15)
[2021-04-19] MEDS ORDERED: K-DUR TAB 20 MEQ PO PRN (09:15)
[2021-04-19] MEDS ORDERED: POTASSIUM CHL 40 MEQ/NS 0.45% 500 ML IV PRN (09:15)
[2021-04-19] MEDS ORDERED: MICRO K EXTEN CAP 10 MEQ PO PRN (09:15)
[2021-04-19] MEDS ORDERED: POTASSIUM CHL 60 MEQ/NS 0.45% 500 ML IV PRN (09:15)
[2021-04-19] MEDS ORDERED: KLOR-CON PO PRN (09:15)
[2021-04-19] MEDS: FORTAZ or TAZICEF VIAL INJ 1 G in NS 100 ML IV + SPIKE MINIBAG* 100 ML IV SCH (10:13)
[2021-04-20] MEDS: NS 1000 ML 1,000 ML IV SCH (06:17)
[2021-04-20] MEDS: ROXICODONE TAB 5 MG PO SCH ×5 (06:17→22:28)
[2021-04-20] MEDS: TYLENOL 325 MG TAB PO SCH ×4 (06:17→22:29)
[2021-04-20] MEDS: XANAX PO SCH (06:18)
[2021-04-20] MEDS: SYNTHROID 75 mcg TAB PO SCH (06:18)
[2021-04-20] MEDS: PYRIDIUM PO SCH ×2 (06:49→12:28)
[2021-04-20 06:54] LABS: BASOPHILS # (AUTO) 0.1 X10^3/uL (0.0-0.1); BASOPHILS % (AUTO) 0.5 % (0.2-1.0); EOSINOPHILS # (AUTO) 0.5 x10^3/uL (0.0-0.2); EOSINOPHILS % (AUTO) 4.1 % (0.9-2.9); HEMATOCRIT 29.4 % (36.0-47.0); HEMOGLOBIN 9.6 g/dL (12.0-16.0); LYMPHOCYTES # (AUTO) 1.9 X10^3/uL (1.3-2.9); LYMPHOCYTES % (AUTO) 14.9 % (21.0-51.0); MEAN CORPUSCULAR HEMOGLOBIN 32.1 pg (27.0-34.0); MEAN CORPUSCULAR HGB CONC 32.6 g/dL (33.0-35.0); MEAN CORPUSCULAR VOLUME 98.3 fL (80.0-100.0); MONOCYTES # (AUTO) 1.4 x10^3/uL (0.3-0.8); MONOCYTES % (AUTO) 11.3 % (0.0-13.0); NEUTROPHILS # (AUTO) 8.8 x10^3/uL (2.2-4.8); NEUTROPHILS % (AUTO) 69.2 % (42.0-75.0); PLATELET COUNT 389 X10^3/uL (150.0-450.0); RED BLOOD COUNT 2.99 X10^6/uL (3.5-5.4); RED CELL DISTRIBUTION WIDTH 14.2 % (11.6-16.5); WHITE BLOOD COUNT 12.8 X10^3/uL (3.6-10.0)
[2021-04-20 07:06] LABS: ALANINE AMINOTRANSFERASE 109 Units/L (12-78); ALBUMIN 2.5 g/dL (3.4-5.0); ALKALINE PHOSPHATASE 209 Units/L (46-116); ASPARTATE AMINO TRANSFERASE 49 Units/L (15-37); BLOOD UREA NITROGEN 6 mg/dL (7-18); CALCIUM 8.6 mg/dL (8.5-10.1); CARBON DIOXIDE 27.3 mmol/L (21-32); CHLORIDE 112 mmol/L (98-107); COR CA(FOR HYPOALB) 9.8 mg/dL (8.5-10.1); COR NA(FOR HYPERGLY) 148 mmol/L (136-145); CREATININE 0.72 mg/dL (0.55-1.02); SODIUM 148 mmol/L (136-145); TOTAL PROTEIN 6.7 g/dL (6.4-8.2); eGFR NON BLACK RACES > 60 (>60)
[2021-04-20] MEDS ORDERED: LEXAPRO ONE (08:26)
[2021-04-20] MEDS: ALBUMIN HUMAN 25%- 100 ML 100 ML IV SCH (08:29)
[2021-04-20] MEDS: LEVAQUIN PREMIX IV 250 MG 250 MG/50 ML BAG IV SCH (09:14)
[2021-04-20] MEDS: DUONEB 0.5 MG/3 MG (3 mL) NEB SCH ×4 (09:16→20:51)
[2021-04-20] MEDS: COZAAR PO SCH (09:58)
[2021-04-20] MEDS: LEXAPRO PO SCH (09:59)
[2021-04-20] MEDS: NEURONTIN TAB 600 MG PO SCH (09:59)
[2021-04-20] MEDS: LEVSIN/MAALOX/LIDOC VISC PO SCH ×3 (09:59→20:31)
[2021-04-20] MEDS: TOPROL XL PO SCH (09:59)
[2021-04-20] MEDS: WELLBUTRIN XL 150 MG (DAILY) PO SCH (09:59)
[2021-04-20] MEDS: FORTAZ or TAZICEF VIAL INJ 1 G in NS 100 ML IV + SPIKE MINIBAG* 100 ML IV SCH (09:59)
[2021-04-20] MEDS ORDERED: XANAX PO PRN (10:52)
[2021-04-20] MEDS: LR 1000 ML IV 1,000 ML IV SCH ×2 (13:14→22:29)
[2021-04-20] MEDS ORDERED: REQUIP PO SCH (21:00)
[2021-04-21] MEDS: ROXICODONE TAB 5 MG PO SCH ×3 (04:00→11:46)
[2021-04-21] MEDS: LR 1000 ML IV 1,000 ML IV SCH (05:00)
[2021-04-21] MEDS: TYLENOL 325 MG TAB PO SCH (06:09)
[2021-04-21] MEDS: SYNTHROID 75 mcg TAB PO SCH (06:09)
[2021-04-21 06:16] LABS: BASOPHILS # (AUTO) 0.4 X10^3/uL (0.0-0.1); BASOPHILS % (AUTO) 3.6 % (0.2-1.0); EOSINOPHILS # (AUTO) 0.5 x10^3/uL (0.0-0.2); EOSINOPHILS % (AUTO) 4.3 % (0.9-2.9); HEMATOCRIT 30.5 % (36.0-47.0); HEMOGLOBIN 9.9 g/dL (12.0-16.0); LYMPHOCYTES # (AUTO) 1.1 X10^3/uL (1.3-2.9); MEAN CORPUSCULAR HEMOGLOBIN 31.6 pg (27.0-34.0); MEAN CORPUSCULAR HGB CONC 32.3 g/dL (33.0-35.0); MEAN CORPUSCULAR VOLUME 97.7 fL (80.0-100.0); MONOCYTES # (AUTO) 0.5 x10^3/uL (0.3-0.8); MONOCYTES % (AUTO) 4.1 % (0.0-13.0); NEUTROPHILS # (AUTO) 9.9 x10^3/uL (2.2-4.8); PLATELET COUNT 433 X10^3/uL (150.0-450.0); RED BLOOD COUNT 3.12 X10^6/uL (3.5-5.4); RED CELL DISTRIBUTION WIDTH 14.4 % (11.6-16.5); WHITE BLOOD COUNT 12.5 X10^3/uL (3.6-10.0)
[2021-04-21 06:29] LABS: ALANINE AMINOTRANSFERASE 91 Units/L (12-78); ALBUMIN 2.9 g/dL (3.4-5.0); ALKALINE PHOSPHATASE 193 Units/L (46-116); ASPARTATE AMINO TRANSFERASE 29 Units/L (15-37); BLOOD UREA NITROGEN 5 mg/dL (7-18); CARBON DIOXIDE 27.6 mmol/L (21-32); CHLORIDE 110 mmol/L (98-107); COR CA(FOR HYPOALB) 9.9 mg/dL (8.5-10.1); COR NA(FOR HYPERGLY) 149 mmol/L (136-145); CREATININE 0.84 mg/dL (0.55-1.02); SODIUM 149 mmol/L (136-145); TOTAL PROTEIN 7.2 g/dL (6.4-8.2); eGFR NON BLACK RACES > 60 (>60)
[2021-04-21 07:07] LABS: BAND NEUTROPHILS % 1 % (0-10); PLATELET MORPHOLOGY COMMENT NORMAL (NORMAL)
[2021-04-21 07:08] LABS: HYPOCHROMASIA SLIGHT
[2021-04-21] MEDS ORDERED: FORTAZ or TAZICEF VIAL INJ 1 G in NS 100 ML IV + SPIKE MINIBAG* 100 ML IV SCH (08:00)
[2021-04-21] MEDS: LEVSIN/MAALOX/LIDOC VISC PO SCH ×2 (08:02→09:20)
[2021-04-21] MEDS: PYRIDIUM PO SCH ×2 (08:02→09:15)
[2021-04-21 08:54] VITALS: BP 146/70
--- NOTE | 2021-04-21 08:57 | PCM.PROG ---
Progress Note - Progress Note for Day of Date of Exam: 04/18/21 - Subjective Subjective: IS BEING TREATED FOR ACUTE PYELONEPHRITIS, UTI, ACUTE BRONCHITIS, AND PLEURISY. TODAY, SHE IS ALERT AND ORIENTED, LYING IN BED ON MORNING ROUNDS. SHE CONTINUES WITH COMPLAINTS OF GENERALIZED ACHING, ABDOMINAL TENDERNESS, BURNING ON URINATION, AND INTERMITTENT COUGH. SHE ALSO REPORTS SORE THROAT THIS MORNING. ON EXAMINATION, HEART IS REGULAR IN RATE AND RHYTHM. BILATERAL LUNGS ARE NOTED TO HAVE DIMINISHED LUNG SOUNDS THROUGHOUT. ABDOMEN IS ROUND, SOFT, AND CONTINUES TO HAVE DIFFUSE TENDERNESS TO PALPATION. NORMAL BOWEL SOUNDS ARE NOTED IN ALL QUADRANTS. HER VITALS THIS MORNING ARE: 98.6-81-24-98%-136/66. LABS WERE OBTAINED. ABNORMAL LAB VALUES INCLUDE THE FOLLOWING: WBC 12.6, RBC 3.05, HGB 9.8, HCT 29.8, CHLORIDE 110, BUN 6, GLUCOSE 125, CALCIUM 8.0, AST 116, ALT 139, ALK PHOS 253, ALBUMIN 2.2. BLOOD CULTURES REPORT GROWTH OF E.COLI. SHE IS CURRENTLY RECEIVING NORMAL SALINE AT 75 ML/HR, FORTAZ 1G IV Q8H, LEVAQUIN 250 MG IV DAILY, FIORICET 2TAB PO Q6H PRN, MAALOX 30ML PO Q4H PRN, DUONEBS QID, NEURONTIN 800MG PO DAILY, TORADOL 30MG IV Q8H, PYRIDIUM 200MG PO TID, COXAAR 100MG PO DAILY, TORPROL XL 25MG PO DAILY, ZOFRAN 4MG IV Q8H PRN, ROXICODONE 10MG PO TID. TODAY, WE WILL ADD ALBUMIN 25% IV DAILY, LASIX 20MG IV X 1 DOSE, AND GI COCKTAIL QID. OTHERWISE, WE PLAN TO FOLLOW UP WITH AM LABS AND CONTINUE TO MONITOR. TIME SPENT ON CLINICAL ASSESSMENT, REVIEWING LABS AND IMAGING, DECISION MAKING, AND DOCUMENTATION GREATER THAN 45 MINUTES. - Past Medical Family Social History Past Med/Fam/Surg Hx: No changes since H&P Allergies: Allergies No Known Drug Allergies Allergy (Verified 04/14/21 18:03) - Review of Systems ROS: No change since H&P - Vital Signs and I&O's Vital Signs: Temperature 98.1 F Pulse Rate [Left] 71 Pulse Rate 74 Respiratory Rate 23 Blood Pressure [Left Arm] 146/70 Blood Pressure [Right Arm] 147/66 Blood Pressure 127/69 O2 Sat by Pulse Oximetry 92 Intake and Output: Intake & Output 04/18/21 04/19/21 04/20/21 04/21/21 11:59 11:59 11:59 11:59 Intake Total 5056 / 5056 3550 / 3550 2717 / 2717 3360 / 3360 Output Total 4925 / 4925 Balance 131 / 131 3550 / 3550 2717 / 2717 3360 / 3360 - Physical Exam Oriented: Normal Eyes: Normal Ear: Normal Nose: Normal Throat: Normal Respiratory: Generalized, Wheezes Cardiovascular: Normal : Normal Auscultation: Bowel Sounds: Normal Palpation: Normal Tenderness: LUQ, LLQ, Moderate Skin: Normal Psychiatric: Normal Mood Description: Calm Affect: Normal Speech Pattern: Clear, Appropriate - Laboratory and Diagnostics Result Diagrams: 04/21/21 05:31 04/21/21 05:31 Labs: 04/15/21 15:50 Urine,Catheterized Urine Culture - Final 04/14/21 19:30 Blood Blood Culture - Final Escherichia Coli 04/14/21 19:38 Blood Blood Culture - Final Escherichia Coli Laboratory WBC 12.5 X10^3/uL (3.6-10.0) H 04/21/21 05:31 RBC 3.12 X10^6/uL (3.5-5.4) L 04/21/21 05:31 Hgb 9.9 g/dL (12.0-16.0) L 04/21/21 05:31 Hct 30.5 % (36.0-47.0) L 04/21/21 05:31 MCV 97.7 fL (80.0-100.0) 04/21/21 05:31 MCH 31.6 pg (27.0-34.0) 04/21/21 05:31 MCHC 32.3 g/dL (33.0-35.0) L 04/21/21 05:31 RDW 14.4 % (11.6-16.5) 04/21/21 05:31 Plt Count 433 X10^3/uL (150.0-450.0) 04/21/21 05:31 Plt Count Comment Adequate (ADEQUATE) 04/21/21 05:31 MPV 9.0 fL (7.4-11.0) 04/21/21 05:31 Neut % (Auto) 79.0 % (42.0-75.0) H 04/21/21 05:31 Lymph % (Auto) 9.0 % (21.0-51.0) L 04/21/21 05:31 [place] % (Auto) 4.1 % (0.0-13.0) 04/21/21 05:31 Eos % (Auto) 4.3 % (0.9-2.9) H 04/21/21 05:31 Baso % (Auto) 3.6 % (0.2-1.0) H 04/21/21 05:31 Neut # (Auto) 9.9 x10^3/uL (2.2-4.8) H 04/21/21 05:31 Lymph # (Auto) 1.1 X10^3/uL (1.3-2.9) L 04/21/21 05:31 [place] # (Auto) 0.5 x10^3/uL (0.3-0.8) 04/21/21 05:31 Eos # (Auto) 0.5 x10^3/uL (0.0-0.2) H 04/21/21 05:31 Baso # (Auto) 0.4 X10^3/uL (0.0-0.1) H 04/21/21 05:31 Absolute Nucleated RBC 0.0 /100WBC 04/21/21 05:31 Total Counted 100 04/21/21 05:31 Neutrophils % (Manual) 65 % (39-76) 04/21/21 05:31 Band Neutrophils % 1 % (0-10) 04/21/21 05:31 Lymphocytes % (Manual) 25 % (13-43) 04/21/21 05:31 Monocytes % (Manual) 8 % (4-9) 04/21/21 05:31 Eosinophils % (Manual) 1 % (0-6) 04/21/21 05:31 Plt Morphology Comment Normal (NORMAL) 04/21/21 05:31 RBC Morphology Abnormal (NORMAL) A 04/21/21 05:31 Hypochromasia Slight A 04/21/21 05:31 D-Dimer 2.06 ug/ml (0.0-0.57) H* 04/14/21 18:34 Sodium 149 mmol/L (136-145) H 04/21/21 05:31 Corrected Sodium 149 mmol/L (136-145) H 04/21/21 05:31 Potassium 3.9 mmol/L (3.5-5.1) 04/21/21 05:31 Chloride 110 mmol/L (98-107) H 04/21/21 05:31 Carbon Dioxide 27.6 mmol/L (21-32) 04/21/21 05:31 BUN 5 mg/dL (7-18) L 04/21/21 05:31 Creatinine 0.84 mg/dL (0.55-1.02) 04/21/21 05:31 Est GFR (MDRD) Af Amer > 60 (>60) 04/21/21 05:31 Est GFR (MDRD) Non-Af > 60 (>60) 04/21/21 05:31 Glucose 118 mg/dL (65-99) H 04/21/21 05:31 Calcium 9.0 mg/dL (8.5-10.1) 04/21/21 05:31 Corrected Calcium 9.9 mg/dL (8.5-10.1) 04/21/21 05:31 Magnesium 2.3 mg/dL (1.7-2.9) 04/19/21 05:40 Iron 82 ug/dL (50-175) 04/19/21 05:40 Transferrin 158 mg/dL (202-364) L 04/19/21 05:40 Ferritin 292 ng/mL (8-252) H 04/19/21 05:40 Total Bilirubin 0.40 mg/dL (0.2-1.0) 04/21/21 05:31 AST 29 Units/L (15-37) 04/21/21 05:31 ALT 91 Units/L (12-78) H 04/21/21 05:31 Alkaline Phosphatase 193 Units/L (46-116) H 04/21/21 05:31 Troponin I < 0.02 ng/mL (0-1.5) 04/14/21 18:34 Total Protein 7.2 g/dL (6.4-8.2) 04/21/21 05:31 Albumin 2.9 g/dL (3.4-5.0) L 04/21/21 05:31 Globulin 4.3 g/dL (2.5-4.5) 04/21/21 05:31 Albumin/Globulin Ratio 0.7 Ratio (1.1-2.1) L 04/21/21 05:31 Vitamin B12 424 pg/mL (193-986) 04/19/21 05:40 Folate 5.1 ng/mL (>8.6) L 04/19/21 05:40 Specimen Type Random urine 04/14/21 20:20 Urine Color Yellow (YELLOW) 04/14/21 20:20 Urine Appearance Cloudy (CLEAR) 04/14/21 20:20 Urine pH 7.0 (5.0 - 8.0) 04/14/21 20:20 Ur Specific [place] 1.030 (1.000-1.030) 04/14/21 20:20 Urine Protein 3+ (NEGATIVE) 04/14/21 20:20 Urine Glucose (UA) Negative (NEGATIVE) 04/14/21 20:20 Urine Ketones Negative (NEGATIVE) 04/14/21 20:20 Urine Occult Blood 4+ (NEGATIVE) 04/14/21 20:20 Urine Nitrite Negative (NEGATIVE) 04/14/21 20:20 Urine Bilirubin Negative (NEGATIVE) 04/14/21 20:20 Urine Urobilinogen Normal (NORMAL) 04/14/21 20:20 Ur Leukocyte Esterase 3+ (NEGATIVE) 04/14/21 20:20 Urine RBC 5-10 /HPF (0-3) A 04/14/21 20:20 Urine WBC Tntc /HPF (0-5) A 04/14/21 20:20 Ur Squamous Epith Cells Few /HPF (NEGATIVE) 04/14/21 20:20 Urine Bacteria 1+ /HPF (NEGATIVE) 04/14/21 20:20 Urine Mucus Few /HPF (NEGATIVE) 04/14/21 20:20 Urine Trichomonas Moderate /HPF (NEGATIVE) 04/14/21 20:20 Ur Culture Indicated? No/not indicated 04/14/21 20:20 - Plan (1) Acute bacterial pyelonephritis Status: Acute Plan: NORMAL SALINE AT 75 ML/HR, ALBUMIN 25% IV DAILY, GI COCKTAIL QID, FORTAZ 1G IV Q8H, LEVAQUIN 500MG IV DAILY, PYRIDIUM 200MG PO TID, FIORICET 2TAB PO Q6H PRN, MAALOX 30ML PO Q4H PRN, DUONEBS QID, NEURONTIN 800MG PO DAILY, COZAAR 100MG PO DAILY, TORPROL XL 25MG PO DAILY, ZOFRAN 4MG IV Q8H PRN, ROXICODONE 10MG PO TID. (2) Acute bronchitis Status: Acute Qualifiers: Bronchitis organism: unspecified organism Qualified Code(s): J20.9 - Acute bronchitis, unspecified (3) Pleurisy Status: Acute (4) Sepsis Status: Acute Qualifiers: Sepsis type: Escherichia coli Sepsis acute organ dysfunction status: unspecified Qualified Code(s): A41.51 - Sepsis due to Escherichia coli [E. coli]
[2021-04-21] MEDS ORDERED: LEXAPRO ONE (09:06)
[2021-04-21] MEDS: TOPROL XL PO SCH (09:15)
[2021-04-21] MEDS: WELLBUTRIN XL 150 MG (DAILY) PO SCH (09:15)
[2021-04-21] MEDS: COZAAR PO SCH (09:15)
[2021-04-21] MEDS: ALBUMIN HUMAN 25%- 100 ML 100 ML IV SCH (09:16)
[2021-04-21] MEDS: NEURONTIN TAB 600 MG PO SCH (09:17)
[2021-04-21] MEDS: LEVAQUIN PREMIX IV 250 MG 250 MG/50 ML BAG IV SCH (09:17)
[2021-04-21] MEDS: LEXAPRO PO SCH (09:19)
[2021-04-21] MEDS: DUONEB 0.5 MG/3 MG (3 mL) NEB SCH (09:24)
== END 2021-04-21 12:30 | disposition home or self-care (01) | DRG 872 ==
LOC: ER 17:52 → MED/SURG 22:48
PROVIDERS: ADMIT Obstetrics & Gynecology Obstetrics; ATTEND Internal Medicine
DX: R51.9 Headache, unspecified; A41.51 Sepsis due to Escherichia coli [E. coli]; N10 Acute pyelonephritis; R09.1 Pleurisy; R26.89 Other abnormalities of gait and mobility; R79.89 Other specified abnormal findings of blood chemistry; M54.2 Cervicalgia; J20.9 Acute bronchitis, unspecified; N39.0 Urinary tract infection, site not specified